=== PATIENT | female | born 2000 | race Asian ===

== ENCOUNTER 2022-11-03 22:16 | Emergency (ER) | payer OTHER, SELFPAY ==
--- NOTE | ~2022-11-03 | CT_ITS ---
EXAMINATION: CT brain wo con DATE: 11/03/2022 22:50 INDICATION: First time seizure TECHNIQUE: Computed tomographic angiography (CTA) of the head was performed without and with 100 mL O mnipaque-350 intravenous contrast. Exam dose: 605.33 mGy-cm total exam DLP. Volume-rendered and ma ximum intensity projection 3D reconstructions of the intracranial arteries were created by the techno logist on a separate workstation. COMPARISON: None. FINDINGS: No intracranial mass lesion or hemorrhage, midline shift or mass effect. Normal ventricular size. Normal acosta-white matter differentiation. No subdural or epidural hematoma. No fracture or bone destruction of the cranial vault. Included paranasal sinuses and the mastoid air cells are normally developed and aerated. IMPRESSION: Negative Reviewed, dictated and finalized at [facility] Reviewed, dictated and finalized at [facility]. IMPRESSION: Negative
[2022-11-03 22:15] VITALS: BP 117/78; PULSE 117; RESP 16; TEMP 36.4; O2SAT 100
--- NOTE | 2022-11-03 22:27 | ECG_ITS ---
Measurements Intervals [place] Rate: 106 P: 66 MT: 119 QRS: 75 QRSD: 84 T: 43 QT: 333 QTc: 444 Interpretive Statements SINUS TACHYCARDIA OTHERWISE NORMAL eCG NO PREVIOUS ECG AVAILABLE FOR COMPARISON Electronically Signed On 11-04-2022 8:29:56 CDT by Joey Renteria M.D.
--- NOTE | 2022-11-03 22:30 | ED.SEIZURE ---
HPI - Seizure General Chief Complaint: Seizure Stated Complaint: seizure Time Seen by Provider: 11/03/22 22:17 History of Present Illness HPI Narrative: Patient is a 22-year-old female here via EMS after suspected seizure-like activity earlier today. Patient states that she had a very active day out in the sun, came back to her home and was preparing for moving it with her and. Patient states she does not know what happened next but then woke up with the EMS personnel taking her to the hospital. According to EMS, her family members witnessed about 2 to 3 minutes of tonic-clonic like activity. She did have urinary incontinence but no tongue biting, and was postictal for several minutes. Patient states that she was in her usual state of health today aside from a mild frontal headache. She currently is having a mild frontal headache but no other symptoms. No fevers, chills, nausea, vomiting, abdominal pain, shortness of breath, ingestions. Denies chance of . Related Data Allergies Allergy/AdvReac Type Severity Reaction Status Date / Time No Known Allergies Allergy Verified 11/03/22 22:24 Review of Systems Review of Systems: Gen.: Denies fevers or chills Eyes: Denies eye pain or visual change ENT: Denies congestion Respiratory: Denies shortness of breath or cough CV: Denies chest pain or palpitations GI: Denies abdominal pain nausea, emesis or diarrhea denies burning, urgency, frequency or hematuria Musculoskeletal: Denies back pain or muscle pain Neuro: Reports seizure-like activity and mild headache Skin: Denies rash Except as documented, all other systems reviewed and negative Exam Narrative: APPEARANCE: Well appearing, no pain in distress, well-nourished. Head: Normocephalic and atraumatic. EYES: PERRLA/EOMI, conjunctivae clear NOSE: No nasal drainage EARS: External ear normal in appearance THROAT: Oropharynx is clear. Mucous membranes are moist. NECK: Supple. No adenopathy, no masses. RESPIRATORY: Airway patent, respirations nonlabored. Clear to auscultation bilaterally, no rales, rhonchi, wheezing. CARDIOVASCULAR: Regular rate and rhythm without murmurs, rubs, or gallops. ABDOMINAL: Normoactive bowel sounds. Soft, nontender, nondistended. No rebound tenderness or guarding. MUSCULOSKELETAL: Extremities are warm and well-perfused. Moves all extremities well. No edema. NEURO: Normal speech. No focal neurologic deficits. SKIN: Skin is warm and dry. No rashes. PSYCHIATRIC: Normal affect/mood. Course Vital Signs Vital signs: Vital Signs Temperature 97.6 F 11/03/22 22:15 Pulse Rate 117 H 11/03/22 22:15 Respiratory Rate 16 11/03/22 22:15 Blood Pressure 117/78 11/03/22 22:15 Pulse Oximetry 100 11/03/22 22:15 Oxygen Delivery Room Air 11/03/22 22:15 Temperature 97.6 F 11/03/22 22:15 Pulse Rate 82 11/04/22 00:19 Respiratory Rate 12 11/04/22 00:19 Blood Pressure 108/82 11/04/22 00:19 Pulse Oximetry 100 11/04/22 00:19 Oxygen Delivery Room Air 11/03/22 22:15 MDM - Seizure MDM Narrative Medical decision making narrative: 22-year-old female here for evaluation after witnessed seizure-like activity today without known diagnosis of seizure disorder, with loss of bladder but no tongue biting. Apparently patient was postictal for EMS but is A&O 4 upon arrival with no deficit on exam, complaining of only mild frontal headache. She is afebrile without nuchal rigidity. Basic labs unremarkable including negative lactic acid. Head CT is normal. test is negative, U tox is negative. Patient was observed in the ED for 2 and half hours without recurrence of her seizure-like activity. Spoke with Dr. Jaffe, neurology, who agrees with plan for outpatient management and follow-up at this time without indication to start antiepileptics. Told patient to not drive until she can see neurology and we discussed return precautions and she voiced understanding. Lab D
[2022-11-03 22:33] VITALS: PULSE 105
[2022-11-03 22:39] LABS: Glucose Point of Care 79 mg/dl (65-105)
[2022-11-03 22:41] LABS: Basophils Percent Auto 0.4 % (0.2-1.2); Eosinophils Absolute Auto 0.1 K/mm3 (0-0.3); Hematocrit 39.6 % (37.0-47.0); Hemoglobin 12.7 g/dL (12.0-15.0); Immature Granulocyte Absolute 0.01 K/mm3 (0.00-0.031); Immature Granulocyte Percent A 0.2 % (0-0.5); Lymphocytes Percent Auto 37.7 % (18.3-44.2); Mean Corpuscular HGB Conc 32.1 g/dl (32-36); Mean Corpuscular Hemoglobin 29.8 pg (26-34); Monocytes Absolute Auto 0.4 K/mm3 (0.1-0.6); Monocytes Percent Auto 7.7 % (2.6-8.5); Neutrophils Absolute Auto 2.9 K/mm3 (1.3-6.7); Platelet Count Result 255 k/mm3 (150-375); Red Blood Count 4.26 M/mm3 (4.2-5.4); Red Cell Distribution Width 12.6 % (11.5-14.5); White Blood Count 5.6 K/mm3 (4.5-10.0)
[2022-11-03 23:02] LABS: Alanine Aminotransferase 31 U/L (6-35); Albumin Level 4.4 g/dL (3.5-5.1); Alkaline Phosphatase 47 U/L (38-126); Anion Gap 8 mmol/L (8-16); Aspartate Amino Transferase 27 U/L (14-36); Bilirubin,Total 0.2 mg/dL (0.2-1.3); Blood Urea Nitrogen 13 mg/dL (7-17); Calcium 8.9 mg/dL (8.4-10.2); Carbon Dioxide 28 mmol/L (22-30); Chloride 104 mmol/L (98-107); Estimated CRCL calculation 79 ml/min; Estimated Glomerular Filt Rate > 60; Glucose 79 mg/dL (65-110); Magnesium 2.3 mg/dL (1.6-2.3); Phosphorus 3.5 mg/dL (2.5-4.5); Sodium 140 mmol/L (137-145)
[2022-11-03 23:10] VITALS: BP 106/71; PULSE 90; RESP 18; O2SAT 98
[2022-11-03 23:52] LABS: Appearance Urine Clear (Clear); Bacteria Urine 1+ /hpf; Bilirubin Urine Negative (Negative); Blood Urine Negative (Negative); Color Urine Yellow (Yellow); Glucose Urine UA Negative (Negative); Ketones Urine Negative (Negative); Leukocyte Esterase Ur Trace LEU/UL (Negative); Nitrate Urine Negative (Negative); Non Pathogenic Casts 0-2; Protein Urine Negative (Negative); RBC Urine 0-2 /hpf (0-2); Specific Grav Ur 1.016 (1.001-1.035); Squamous Epithelial Cell Urine Occasional /hpf (Few); Urobilinogen Urine 0.2 mg/dL (<2.0); pH Urine 6.5 (5.0-9.0)
[2022-11-04 00:04] LABS: Lactic Acid Reflex 1.2 mmol/L (0.7-2.0)
[2022-11-04 00:15] LABS: Barbiturate Screen Urine Negative (Negative)
[2022-11-04 00:19] VITALS: BP 108/82; PULSE 82; RESP 12; O2SAT 100
[2022-11-04 00:19] LABS: Benzodiazepines Screen Urine Negative (Negative)
[2022-11-04 00:22] LABS: Amphetamine Screen Urine Negative (Negative); Cannabinoid Screen Urine Negative (Negative); Cocaine Screen Urine Negative (Negative); Methadone Screen Urine Negative (Negative); Opiate Screen Urine Negative (Negative); Phencyclidine Screen Urine Negative (Negative)
[2022-11-04 00:22] LABS: Add Urine Microscopic? YES
[2022-11-04] MEDS: KETOROLAC 15 MG/ML VIAL (*BKC) IV PUSH (00:31)
[2022-11-04 01:17] VITALS: BP 102/64; PULSE 86; RESP 12; TEMP 36.8; O2SAT 99
== END 2022-11-04 01:20 | disposition home or self-care (01) ==
PROVIDERS: Emergency Provider Physician Assistant
DX: R56.9 Unspecified convulsions (principal); R00.0 Tachycardia, unspecified
CPT/HCPCS: 36415; 70450; 80053; 80307; 81001; 81025; 82948; 83605; 83735; 84100; 85025; 87086; 87088; 93005; 96374; 99284; J1885